=== PATIENT | male | born 1985 | race African-American/Black ===

== ENCOUNTER 2023-06-06 09:41 | Emergency (ER) | payer BC, SELFPAY ==
--- NOTE | ~2023-06-06 | XR_ITS ---
STUDY: Cervical and thoracic spine INDICATION: Neck and bilateral thoracic back pain COMPARISON: None FINDINGS: Cervical spine: Cervical lordotic straightening. Vertebral bodies and intervertebral discs are maintained in height. Odontoid is intact, posterior elements are aligned and no prevertebral soft tissue swelling seen. No apical abnormality identified. Thoracic spine: Minor lower anterior wedge deformities. Alignment is normal. No focal paravertebral soft tissue swelling seen. Cardiac silhouette appears prominent. Vessel crowding and elevated right hemidiaphragm. XR/XR thoracic spine 3V IMPRESSION: Cervical lordotic straightening. No acute bony pathology cervical and thoracic spine.
--- NOTE | ~2023-06-06 | XR_ITS ---
STUDY: Cervical and thoracic spine INDICATION: Neck and bilateral thoracic back pain COMPARISON: None FINDINGS: Cervical spine: Cervical lordotic straightening. Vertebral bodies and intervertebral discs are maintained in height. Odontoid is intact, posterior elements are aligned and no prevertebral soft tissue swelling seen. No apical abnormality identified. Thoracic spine: Minor lower anterior wedge deformities. Alignment is normal. No focal paravertebral soft tissue swelling seen. Cardiac silhouette appears prominent. Vessel crowding and elevated right hemidiaphragm. XR/XR cervical spine 3V IMPRESSION: Cervical lordotic straightening. No acute bony pathology cervical and thoracic spine.
[2023-06-06 09:47] VITALS: BP 143/78; PULSE 82; RESP 18; TEMP 36.7; O2SAT 97; BMI 46.5
--- NOTE | 2023-06-06 09:52 | ED.BACK ---
HPI - Back Pain/Injury General Chief Complaint: Back Pain/Injury Stated Complaint: Neck/back pain Time Seen by Provider: 06/06/23 09:50 Source: patient Mode of arrival: ambulatory Limitations: no limitations History of Present Illness HPI Narrative: 38 year old male with no significant past medical history presenting to the ED with a complaint of back pain after bending down to tie his shoe this morning. States he sneezed twice while he was bent down and heard his upper back crack . Since this time has had bilateral upper back pain with radiation into his neck bilaterally. Worse with movement. Able to ambulate with discomfort. Pain does not shoot down into his lower extremities. Denies tingling/numbness/weakness to his extremities. Denies JUSTIN, vision changes, dizziness, fever, chills, saddle paresthesias, or bowel/ bladder in continence or retention. No IVDU, history of back pain, or previous spinal surgeries. Related Data Previous Rx's Medication Instructions Recorded cyclobenzaprine 10 mg tablet 10 mg PO BEDTIME PRN muscle spasm 06/06/23 #7 tabs lidocaine 5 % topical patch 1 patch topical DAILY #15 ea 06/06/23 (Lidoderm) naproxen 500 mg tablet 500 mg PO BID PRN pain (scale 06/06/23 score 4-6) #14 tabs Allergies Allergy/AdvReac Type Severity Reaction Status Date / Time Penicillins [PCN] Allergy Severe ANAPHYLAXIS Verified 06/06/23 10:52 Sulfa (Sulfonamide Allergy Severe ANAPHYLAXIS Verified 06/06/23 10:52 Antibiotics) [SULFA (SULFONAMIDE ANTIBIOTICS)] Review of Systems Review of Systems: Constitutional: No fever, chills, fatigue, night sweats, weight changes Cardio: No chest pain, palpitations, CALVILLO, orthopnea, peripheral edema Pulm: No SOB, cough, sputum, wheezing, dyspnea, hemoptysis GI: No nausea, vomiting, hematemesis, abdominal pain, diarrhea, constipation, hematochezia, melena : No irregular bleeding, dysuria, frequency, urgency, hesitancy, hematuria, flank pain, urinary flow changes, urinary incontinence or retention MSK: + back pain, + neck pain, No joint pain, myalgias Skin: No lesions, rashes Neuro: No weakness, numbness, paresthesias, LOC, dizziness, headache All other systems reviewed and are negative. [facility] Past Medical History Attestation statement: The following information was validated with the patient. Source: old records reviewed and nursing notes reviewed Social History Social History Smoked in Last 30 Days: No Use of substances other than those prescribed or required for medical reasons: Yes Substance Use Type: Marijuana Advance Directives: No Advance Directives Information Provided: No Physical Exam Vital Signs: Vital Signs: Last Vital Signs Temp 98.7 F 06/06/23 10:21 Pulse 74 06/06/23 10:21 Resp 18 06/06/23 10:21 BP 159/83 H 06/06/23 10:21 Pulse Ox 97 06/06/23 10:21 O2 Del Method Room Air 06/06/23 10:21 BMI result Body Mass Index 46.5 Vital signs stable Const: Other: Sitting in chair in the exam room, uncomfortable appearing. General: cooperative, no acute distress, alert and awake Orientation/consciousness: patient oriented x3 Limitations: no limitations HEENT: Head: Yes normal to inspection, Yes No palpable skull fracture present, Yes normocephalic, Yes atraumatic, No Murillo's sign, No raccoon eyes and No periorbital ecchymosis Ears: hearing grossly normal bilaterally General nose exam: Normal external nose present Eyes: General: appearance normal, both eyes and all related structures Pupils: Equal, round and reactive pupils present EOM: EOMs intact bilaterally Neck: Other: + Neck with decreased range of motion due to pain. Tenderness to palpation over the trapezius muscles bilaterally. Neck: Yes normal visual inspection and Yes no meningeal signs Chest: Chest palpation & inspection: normal inspection of the chest and normal palpation of entire chest wall Resp: Effort & Inspection: normal respiratory effort and able to speak in complete sentences Auscultation: clear to auscultation bilaterally Cardio: Rate: regular rate Rhythm: regular rhythm Heart sounds: S1 normal heart sound present and S2 normal heart sound present Peripheral pulses: Peripheral pulses 2+ throughout : General: Yes no CVA tenderness Back/Spine/Pelvis: Other: No overlying skin changes, deformities, masses. + cervical and thoracic midline spinous tenderness and paraspinal muscles tender to palpation. No palpable deformity or step off. Decreased ROM of the entire spine due to pain. Back: no CVA tenderness Back/spine/pelvis image: 1. Skin: General skin exam: no rashes or lesions noted Neuro: Other: Strength 5/5 intact throughout.? No saddle anesthesia.? Sensation intact to light touch.? Neurovascular intact distally.? General: patient oriented x3, gait normal, moves all extremities and no meningeal signs Cranial nerves: Yes CN's II-XII intact bilaterally and Yes Equal, round and reactive pupils present Extrem: General: Yes normal to inspection and Yes full ROM Course Course Course Narrative: 1129-- Xray c spine showing cervical lordotic straightening, no acute fracture or pathology. Xray thoracic spine without fracture or pathology 1140-- On re-evaluation, patient reports symptom improvement with medications. He is able to sit forward and move around without discomfort. Given unremarkable work up and improvement with treatment, this is likely msk sprain/ strain. Will send patient home with flexeril, naproxen, and lido patches. His vital signs are still stable. Ambulating wtih steady gait. Discussed strict return precautions. All questions answered at this time. Patient agreeable with disposition. Stable for discharge. Medications Administered Discontinued Medications Generic Name Dose Route Start Last Admin Trade Name Freq PRN Reason Stop Dose Admin Cyclobenzaprine HCl 10 mg 06/06/23 10:28 06/06/23 10:55 Cyclobenzaprine Hcl 10 Mg Tablet PO 06/06/23 10:29 10 mg ONCE ONE Administration Ketorolac Tromethamine 30 mg 06/06/23 10:28 06/06/23 10:55 Ketorolac Tromethamine 30 Mg/Ml Vial IM 06/06/23 10:29 30 mg ONCE ONE Administration Lidocaine 1 patch 06/06/23 10:28 06/06/23 10:54 Lidocaine 4 % Patch Adh..Patch TRANSDERMA 06/06/23 10:29 1 patch ONCE ONE Administration Protocol Medical Decision Making Medical Decision Making [facility] Narrative: 38 year old male with no significant past medical history presenting to the ED a complaint of back pain after bending down to tie his shoe this morning. VSS. Patient in NAD, nontoxic appearing, appears uncomfortable secondary to pain. Neck with decreased range of motion due to pain. Tenderness to palpation over the trapezius muscles bilaterally. cervical and thoracic midline spinous tenderness and paraspinal muscles tender to palpation. No palpable deformity or step off. Decreased ROM of the entire spine due to pain. Clinical concern for cervical radiculopathy vs msk sprain/ strain vs fracture vs disc herniation vs sciatica. Unlikely cauda equina, cord compression, or epidural abscess. Plan at this time is pain control, x-ray a thoracic and cervical spine, and re-evaluation. Differential Diagnosis Differential Diagnoses: The differential diagnosis associated with the presentation includes As above. Admission/Observation Not indicated. Lab Data Not indicated. Independent Interpretation I performed an independent interpretation of an: Plain X-Ray Interpretation: X-ray cervical spine and thoracic spine without acute fracture, agree with radiologist's interpretation. Radiology Impression Discussion of test interpretation with radiology: I have reviewed the radiologist's reading. Radiologist Impression: FINDINGS: Cervical spine: Cervical lordotic straightening. Vertebral bodies and intervertebral discs are maintained in height. Odontoid is intact, posterior elements are aligned and no prevertebral soft tissue swelling seen. No apical abnormality identified. Thoracic spine: Minor lower anterior wedge deformities. Alignment is normal. No focal paravertebral soft tissue swelling seen. Cardiac silhouette appears prominent. Vessel crowding and elevated right hemidiaphragm. XR/XR thoracic spine 3V IMPRESSION: Cervical lordotic straightening. No acute bony pathology cervical and thoracic spine. Dictated By: Denia Meng MD Signed By: <Electronically signed by Denia Meng MD in OV> External Record Review External record reviewed: Inpatient record, Office record, Outpatient record, Prior outpatient labs, Prior outpatient radiology, Primary care record and Outside ED record Prescription Management I considered prescription management with: Pain Medication Critical Care Time Critical Care Time Critical Care Time: No Discharge Plan Discharge Clinical Impression: Strain of lumbar region Patient Disposition: Home, Self-Care Instructions: Back Pain (ED) Additional Instructions: The x-ray of your cervical and thoracic spine did not show acute fracture or dislocation. Your pain is likely musculoskeletal. Avoid bending, lifting, or twisting. Use ice several times per day for 20 minutes at a time for the next 48 hours and then change to heat. Flexeril is a muscle relaxer. Take this at night as it makes you drowsy. Do not drive, drink alcohol, or operate machinery while taking it. Naproxen is an anti-inflammatory / pain medication. Take with food. Do not take this with Ibuprofen. Lidoderm patches are numbing patches. Apply to painful areas. In addition you may take Tylenol at home. Follow up with your primary care provider as needed If your pain worsens, if you develop new numbness, tingling, weakness, loss of bowel or bladder function call 911 or return to the ER immediately for evaluation. Prescriptions: New lidocaine [Lidoderm] 5 % adhesive patch,medicated 1 patch topical DAILY Qty: 15 0RF Rx Instructions: leave on most painful area for up to 12 hrs naproxen 500 mg tablet 500 mg PO BID PRN (Reason: pain (scale score 4-6)) Qty: 14 0RF cyclobenzaprine 10 mg tablet 10 mg PO BEDTIME PRN (Reason: muscle spasm) Qty: 7 0RF Referrals: Physician,None [Primary Care Provider] - Stand Alone Forms: Work/School Release Interventions: ED Discharge Assessment Last Done: 06/06/23 11:45 Discharge Date/Time: 06/06/23 11:52
[2023-06-06 10:21] VITALS: BP 159/83; PULSE 74; RESP 18; TEMP 37.1; O2SAT 97
[2023-06-06] MEDS: Lidocaine 4 % Patch ADH..PATCH 1 PATCH TRANSDERMA (10:54)
[2023-06-06] MEDS: Ketorolac Tromethamine 30 MG/ML VIAL IM (10:55)
[2023-06-06] MEDS: Cyclobenzaprine HCl 10 MG TABLET PO (10:55)
== END 2023-06-06 11:52 | disposition home or self-care (01) ==
PROVIDERS: Emergency Provider Emergency Medicine
DX: S39.012A Strain of muscle, fascia and tendon of lower back, initial encounter (principal); X58.XXXA Exposure to other specified factors, initial encounter; M54.6 Pain in thoracic spine; Y93.9 Activity, unspecified; Y92.9 Unspecified place or not applicable; Y99.9 Unspecified external cause status
CPT/HCPCS: 72040; 72072; 96372; 99284; J1885

== ENCOUNTER 2024-02-26 10:52 | Emergency (ER) | payer BC, SELFPAY ==
--- NOTE | ~2024-02-26 | XR_ITS ---
EXAMINATION: XR KNEE, RIGHT CLINICAL INFORMATION: Twisted knee on slip and slide COMPARISON: None available. TECHNIQUE: Four views of the right knee. FINDINGS: No fracture or joint effusion. Tiny osteophyte arising from the lateral tibial tubercle. Alignment is anatomic. Joint spaces are maintained. No abnormal soft tissue calcification. XR/XR knee RT 2V IMPRESSION: No acute fracture or subluxation.
[2024-02-26 11:27] VITALS: BP 147/95; PULSE 87; RESP 20; TEMP 36.6; O2SAT 97; BMI 46.2
--- NOTE | 2024-02-26 11:27 | ED.LOWEXIN ---
HPI - Extremity Injury (Lower) General Chief Complaint: Extremity Injury, Lower Stated Complaint: R leg pain Time Seen by Provider: 02/26/24 11:39 Source: patient and family Mode of arrival: ambulatory Limitations: no limitations History of Present Illness HPI Narrative: 39-year-old male with no significant past medical history presents to the emergency department, this mother, for complaints of right knee pain. He reports he was on a slip and slide on Monday when he slipped on mud and twisted his right knee. He reports he has been having increased pain in the posterior leg from behind the knee to the buttock. He also reports pain at the right lateral knee with mild swelling. He denies any erythema or ecchymosis. He reports difficulty with range of motion and ambulation secondary to pain. He denies any paresthesias Pertinent positives and negatives discussed in HPI Related Data Previous Rx's ?Medication ?Instructions ?Recorded cyclobenzaprine 10 mg tablet 10 mg PO BEDTIME PRN muscle spasm 06/06/23 #7 tabs lidocaine 5 % topical patch 1 patch topical DAILY #15 ea 06/06/23 (Lidoderm) naproxen 500 mg tablet 500 mg PO BID PRN pain (scale 06/06/23 score 4-6) #14 tabs cyclobenzaprine 5 mg tablet 5 mg PO TID PRN muscle spasm #10 02/26/24 tabs Allergies Allergy/AdvReac Type Severity Reaction Status Date / Time Penicillins [PCN] Allergy Severe ANAPHYLAXIS Verified 02/26/24 11:32 Sulfa (Sulfonamide Allergy Severe ANAPHYLAXIS Verified 02/26/24 11:32 Antibiotics) [SULFA (SULFONAMIDE ANTIBIOTICS)] Review of Systems Review of Systems: Yes all other systems are reviewed and are negative [facility] Social History Social History Substance Use Type: Marijuana Advance Directives: No Advance Directives Information Provided: Yes Do you have a plan to hurt others: No Plan Physical Exam Vital Signs: Vital Signs: Last Vital Signs Temp 97.8 F 02/26/24 13:45 Pulse 87 02/26/24 13:45 Resp 20 02/26/24 13:45 BP 147/95 H 02/26/24 13:45 Pulse Ox 97 02/26/24 11:27 O2 Del Method Room Air 02/26/24 13:45 BMI result Body Mass Index 46.2 Nursing notes and vital signs reviewed. GENERAL APPEARANCE: A&0 x 4, generally well appearing, no acute distress HENMT: Normal to inspection, atraumatic, face symmetrical. Normal external ears, nose, and oropharynx clear. EYE: PERRLA, EOM intact, structures appear normal NECK: Supple without stiffness or restricted ROM. HEART: Normal rate and regular rhythm, normal S1/S2, no M/R/G LUNGS: LS CTA, moving air well. Able to speak in complete sentences. No crackles, wheezes, or rhonchi auscultated BACK: No CVAT, no obvious deformity EXTREMITIES: Tenderness to palpation right lateral knee and posterior upper leg. Normal capillary refill. NEUROLOGICAL: Alert and oriented, moving all 4 extremities with equal strength. CN not formally tested but appearing grossly intact. Observed to ambulate with normal gait. Cognition normal SKIN: Warm and dry without any lesions, rash, or visible sores Course Course Course Narrative: This is a Rapid Medical Exam performed in triage by Maria Ines Villarreal PA-C. Full HPI, ROS and PE to be performed by primary ED provider. 39 year-old M w/no sig PMHx presenting to the ED c/o posterior RLE pain s/p running onto slip & side on Monday but stepping into mud puddle prior. reports pain from back of knee to buttock PE: ambulating w/limping gait. +ttp to R posterior thigh. difficult to examine in triage Plan: pain control, +/-imaging with full eval in [facility] Medications Administered Discontinued Medications Generic Name Dose Route Start Last Admin Trade Name Freq PRN Reason Stop Dose Admin Acetaminophen 975 mg 02/26/24 11:45 02/26/24 11:57 Acetaminophen 325 Mg Tablet PO 02/26/24 11:46 975 mg ONCE ONE Administration Ketorolac Tromethamine 15 mg 02/26/24 11:45 02/26/24 11:57 Ketorolac Tromethamine 15 Mg/Ml Vial IM 02/26/24 11:46 15 mg ONCE ONE Administration Medical Decision Making Medical Decision Making MDM Narrative: Old records reviewed for previous imaging, lab studies, ECGs, and notes. Patient was assessed the emergency department with no acute distress or toxicity noted. X-ray right knee completed showing no evidence of acute fractures, or dislocations, per my interpretation. Evidence of a an osteophyte arising from the lateral tibial tubercle which could be consistent with patellar tendon injury. Patient is right posterior upper leg pain is consistent with an acute hamstring injury and patient educated to rest, ice, compress, and elevate for comfort in addition to ice and heat. Reuben wrap applied here in the emergency department and prescriptions for cyclobenzaprine since patient's preferred pharmacy. Patient is safe for discharge at this time with plan for [id number] Tylenol and/or NSAID such as ibuprofen or naproxen for fever/discomfort with dosing as per packaging. HPI, PE, diagnostics, and plan discussed with patient and family with no unanswered questions at this time. Strict return precautions given to return to the emergency department with new, worsening, or concerning emergent symptoms. Recommended to follow-up with there primary care provider in 24-48 hours for further treatment and management. Differential Diagnosis Differential Diagnoses: The differential diagnosis associated with the presentation includes But not limited to fracture, dislocation, sprain, strain, spasm, contusion, tendon/ligament/nerve injury, effusion, septic joint Independent Interpretation I performed an independent interpretation of an: Plain X-Ray Interpretation: As negative for acute fracture Prescription Management I considered prescription management with: Pain Medication Narcotic pain medication was considered, however; based on exam, side effects, and high-risk of addiction was deemed necessary at this time. Discharge Plan Discharge Clinical Impression: Strain of right patellar tendon, Hamstring injury Patient Disposition: Home, Self-Care Instructions: Crutch Instructions (ED), Hamstring Injury (ED), R.I.C.E. Treatment (ED) Prescriptions: New cyclobenzaprine 5 mg tablet 5 mg PO TID PRN (Reason: muscle spasm) Qty: 10 0RF No Action lidocaine [Lidoderm] 5 % adhesive patch,medicated 1 patch topical DAILY Qty: 15 0RF Rx Instructions: leave on most painful area for up to 12 hrs naproxen 500 mg tablet 500 mg PO BID PRN (Reason: pain (scale score 4-6)) Qty: 14 0RF cyclobenzaprine 10 mg tablet 10 mg PO BEDTIME PRN (Reason: muscle spasm) Qty: 7 0RF Referrals: [facility] [place] [facility] [place] Group] [facility] [place] [facility] [place]Provider Group] [facility] [place] [facility] [Provider Group] [facility] [Provider Group] Stand Alone Forms: Work/School Release Interventions: ED Discharge Assessment Last Done: 02/26/24 13:45 Discharge Date/Time: 02/26/24 13:46 Print Language: Greek
[2024-02-26] MEDS: Ketorolac Tromethamine 15 MG/ML VIAL IM (11:57)
[2024-02-26] MEDS: Acetaminophen 325 MG TABLET 975 MG PO (11:57)
--- NOTE | 2024-02-26 12:00 | PC.NURSE ---
pt medicated for 02/11 rle pin
[2024-02-26 13:45] VITALS: BP 147/95; PULSE 87; RESP 20; TEMP 36.6
== END 2024-02-26 13:46 | disposition home or self-care (01) ==
PROVIDERS: Emergency Provider Emergency Medicine
DX: S86.911A Strain of unspecified muscle(s) and tendon(s) at lower leg level, right leg, initial encounter (principal); M25.561 Pain in right knee; X50.1XXA Overexertion from prolonged static or awkward postures, initial encounter; Y93.9 Activity, unspecified; Y92.9 Unspecified place or not applicable; Y99.8 Other external cause status
CPT/HCPCS: 73560; 96372; 99283; 99284; J1885

== ENCOUNTER 2024-03-12 09:18 | Outpatient (AMB) | payer BC, SELFPAY ==
--- NOTE | 2024-03-12 09:36 | A.OFFVIS_ITS ---
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 Patient reports he was on a slip and slide when he slipped on mud and twisted his right knee. He expresses that his pain . Currently he is having a popping sensation and his knee feels unstable. He has notice a bump be hind his knee about a week and a half ago from the injury. 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 Luna is a 39-year-old male who presents to the office today for evaluation of right knee and hamstring pain. He reports that on 02/24/2024 he was going down a slope inside when he twisted and fell. He reports that the majority of his pain is located to the posterior aspect of his knee. Since the date of injury he has noted an improvement in his symptoms however they have not completely resolved. He has a reported sharp pain along the posterolateral aspect of the knee in which he points to. He presented to the emergency department on 02/26/24 where x-rays were obtained and negative for any acute fracture dislocation. He was given a prescription for a muscle relaxer and ibuprofen which did help some. He was then instructed to follow up with orthopedics outpatient for further evaluation and treatment. 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 Range of motion 0-110 degrees. No tenderness to palpation of the medial or lateral joint line. Tenderness to palpation over the posterior aspect of the knee over the hamstrings. Positive Jorge A's posterolateral joint line. Negative anterio r drawer. NVI. Assessment & Plan Assessment & Plan (1) Right hamstring muscle strain: Code(s): S76.311A - Strain of muscle, fascia and tendon of the posterior muscle group at thigh level, right thigh, initial encounter Category: Medical (2) Internal derangement of right knee: Code(s): M23.91 - Unspecified internal derangement of right knee Category: Medical Plan Mr. Luna is a 39-year-old male who presents to the office today for evaluation of right knee and hamstring pain. He reports that on 02/24/2024 he was going down a slope inside when he twisted and fell. He reports that the majority of his pain is located to the posterior aspect of his knee. Since the date of injury he has noted an improvement in his symptoms however they have not completely resolved. He has a reported sharp pain along the posterolateral aspect of the knee in which he points to. He presented to the emergency department on 02/26/24 where x-rays were obtained and negative for any acute fracture dislocation. He was given a prescription for a muscle relaxer and ibuprofen which did help some. He was then instructed to follow up with [facility] outpatient for further evaluation and treatment. Patient will be referred for MRI imaging to further evaluate the integrity of the knee and surrounding structures. His follow-up will be after MRI imaging via telephone encounter as the patient has a high co-pay for his visits. His follow-up will be after MRI is obtained sooner if needed. X-rays obtained from 02/26/2024 obtained in the emergency department are reviewed by Hannah martin PA-C, and are negative for any acute fracture or dislocation. Medications: Discontinued naproxen Discontinued Reason: Patient no longer taking 500 mg PO BID PRN 14 tabs 0RF pain (scale score 4-6) Coding Level of Care Code New Pt Level 4 (54108) Diagnoses Right hamstring muscle strain S76.311A Internal derangement of right knee M23.91
[2024-03-12 09:41] VITALS: BMI 46.2
== END 2024-03-12 10:33 | disposition home or self-care (01) ==
PROVIDERS: Visit Provider Physician Assistant
DX: S76.311A Strain of muscle, fascia and tendon of the posterior muscle group at thigh level, right thigh, initial encounter (principal); M23.91 Unspecified internal derangement of right knee
CPT/HCPCS: 99203

== ENCOUNTER → 2024-03-12 09:18 | Outpatient (BNVA) | payer BC, SELFPAY | PROVIDERS: Visit Provider Physician Assistant ==

== ENCOUNTER 2024-05-01 12:59 | Outpatient (REF) | payer BC, SELFPAY ==
--- NOTE | ~2024-05-01 | MR_ITS ---
EXAMINATION: MR KNEE WITHOUT CONTRAST, RIGHT CLINICAL INFORMATION: Right knee crepitus and decreased range of motion. Instability. Internal derangement. COMPARISON: Right knee radiographs dated 02/26/2024. TECHNIQUE: MRI of the knee without contrast was performed using routine sequences on a high-field scanner. FINDINGS: MENISCI: Medial Meniscus: Intact. Lateral Meniscus: Intact. LIGAMENTS: Cruciate: Intact. Collateral: Edema adjacent to the medial collateral ligament consistent with an acute grade 1 sprain/partial tear. Edema along the periphery of the fibular collateral ligament, consistent with a grade 1 sprain/partial tear. EXTENSOR MECHANISM: Mild distal quadriceps and proximal patellar tendinosis. No transverse tear or tendon retraction. ARTICULAR CARTILAGE/BONE: Patellofemoral Compartment: Intact articular cartilage. Medial Compartment: Intact articular cartilage. Lateral Compartment: Intact articular cartilage. JOINT FLUID AND BURSAE: Small joint effusion. MUSCLE/TENDONS: Heterogeneously increased T2 signal within the distal biceps femoris tendon with mild adjacent soft tissue edema, consistent with tendinosis and minimal longitudinal partial tearing. No full-thickness transverse tendon tear or tendon retraction. MR/MR knee RT wo con IMPRESSION: 1. Acute grade 1 sprain/partial tear of the medial collateral ligament. 2. Acute grade 1 sprain/partial tear of the fibular collateral ligament. 3. No meniscal tear. 4. Mild distal quadriceps and proximal patellar tendinosis. 5. Distal biceps femoris tendinosis with minimal longitudinal partial tear. No full-thickness transverse tendon tear or tendon retraction. 6. Small joint effusion. Electronically signed by: Zaheer Hewitt MD 05/02/2024 10:38 AM EDT
== END 2024-05-01 13:00 | disposition home or self-care (01) ==
LOC: HO.MRI 12:59
PROVIDERS: Visit Provider Physician Assistant
DX: M23.91 Unspecified internal derangement of right knee (principal); S76.311A Strain of muscle, fascia and tendon of the posterior muscle group at thigh level, right thigh, initial encounter
CPT/HCPCS: 73721

== ENCOUNTER 2024-07-08 10:18 | Inpatient (IN) | payer BC, SELFPAY ==
--- NOTE | ~2024-07-08 | XR_ITS ---
EXAMINATION: XR FINGER, RIGHT CLINICAL INFORMATION: Right fifth finger swelling, pain, no injury. COMPARISON: None available. TECHNIQUE: 3 views of the right fifth digit. Bone mineralization is normal. Alignment maintained. Moderate degenerative changes in the first carpometacarpal joint and triscaphe joint with joint space narrowing and hypertrophic change. No displaced fracture of the fifth digit appreciated. Soft tissue swelling at the fifth digit. Radiopaque marker placed by technologist to indicate the area of concern as indicated by the patient at the PIP joint of the fifth digit. XR/XR finger RT min 2V IMPRESSION: No displaced fracture of the fifth digit. Diffuse soft tissue swelling. This study was presented today July 08, 2024 for interpretation. Stat results provided at this time as requested by referring provider. Electronically signed by: Una Tovar MD 07/08/2024 11:24 AM [facility]
[2024-07-08 10:20] VITALS: BP 128/89; PULSE 80; RESP 16; TEMP 36.4; O2SAT 98; BMI 46.2
--- NOTE | 2024-07-08 13:31 | ED.EXTPRO ---
HPI - Extremity Problem General Chief complaint: Extremity Problem Stated complaint: r fith finger pain Time Seen by Provider: 07/08/24 12:01 Source: patient, RN notes reviewed and old records reviewed Mode of arrival: ambulatory History of Present Illness ED Provider: Maria Ines Villarreal PA-C HPI Narrative: 39-year-old male with no significant past medical history presenting to the ED complaining of right 5th digit pain, erythema, and swelling x 8 days. States initially began as pruritus which progressed. Reports pain with ROM. Denies known injury, trauma, fall, drainage from area, chills, numbness. Related Data Home Medications ?Medication ?Instructions ?Recorded ?Confirmed naproxen sodium 220 mg tablet 220 - 440 mg PO DAILY PRN Pain 07/08/24 07/08/24 (Aleve) Allergies Allergy/AdvReac Type Severity Reaction Status Date / Time Penicillins [PCN] Allergy Severe ANAPHYLAXIS Verified 07/08/24 10:22 Sulfa (Sulfonamide Allergy Severe ANAPHYLAXIS Verified 07/08/24 10:22 Antibiotics) [SULFA (SULFONAMIDE ANTIBIOTICS)] Review of Systems Review of Systems: Yes all other systems are reviewed and are negative Constitutional: Constitutional: Reports as per [facility] Past Medical History Attestation statement: The following information was validated with the patient. 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 Physical Exam Vital Signs: Vital Signs: Last Vital Signs Temp 98.4 F 07/08/24 16:37 Pulse 64 07/08/24 16:37 Resp 16 07/08/24 16:37 BP 162/76 H 07/08/24 16:37 Pulse Ox 96 07/08/24 16:37 O2 Del Method Room Air 07/08/24 16:37 BMI result Body Mass Index 46.2 Const: General: cooperative, healthy appearing and no acute distress Orientation/consciousness: patient oriented x3 Limitations: no limitations HEENT: Head: Yes normal to inspection and Yes atraumatic Ears: hearing grossly normal bilaterally General nose exam: Normal external nose present Face and sinus: Yes normal facial exam Eyes: General: appearance normal, both eyes and all related structures EOM: EOMs intact bilaterally Neck: Neck: Yes normal visual inspection and Yes no meningeal signs Resp: Effort & Inspection: normal respiratory effort and no respiratory distress Cardio: Rate: regular rate Skin: Rashes: no rashes Neuro: General: patient oriented x3, tone normal and no meningeal signs Cranial nerves: Yes CN's II-XII intact bilaterally Gait exam (Neuro): Normal gait present Extrem: Other: Please refer to images above. Right 5th digit with appreciable erythema, swelling, & fluctuance to volar and palmar aspects with streaking. Tenderness elicited over flexor tendon. Pain with passive extension. Course Course Course Narrative: XR finger RT min 2V IMPRESSION: No displaced fracture of the fifth digit. Diffuse soft tissue swelling. This study was presented today July 08, 2024 for interpretation. Stat results provided at this time as requested by referring provider. > case discussed with orthopedics Dr. Velásquez, orthopedic PA Billy evaluated patient in the ED and discussed case with Dr. Eaton ([facility] [place]) recommended admission for IV antibiotics and they will monitor. Low suspicion for acute tenosynovitis at this time however may progress. - labs reassuring. Case discussed with hospitalist Medications Administered Generic Name Dose Route Start Last Admin Trade Name Freq PRN Reason Stop Dose Admin Sodium Chloride 3 ml 07/08/24 16:00 07/08/24 16:24 0.9 % Sodium Chloride Flush 3 Ml Syringe IVFLUSH Not Given QSHIFT ASNTOSH Discontinued Medications Generic Name Dose Route Start Last Admin Trade Name Freq PRN Reason Stop Dose Admin Vancomycin HCl 2,000 mg in 500 mls @ 250 mls/hr 07/08/24 13:20 07/08/24 14:54 Vancomycin/Ns IV 07/08/24 15:19 250 mls/hr ONCE ONE Administration Clindamycin Phosphate 600 mg in 50 mls @ 100 mls/hr 07/08/24 13:29 07/08/24 14:49 Cleocin IV 07/08/24 13:58 Infused ONCE ONE Infusion Ketorolac Tromethamine 15 mg 07/08/24 14:29 07/08/24 14:50 Ketorolac Tromethamine 15 Mg/Ml Vial IVPUSH 07/08/24 14:30 15 mg ONCE ONE Administration Medical Decision Making Medical Decision Making [facility] Narrative: 39-year-old male with no significant past medical history presenting to the ED complaining of right 5th digit pain, erythema, and swelling x 8 days. On exam vital signs stable, NAD, nontoxic appearing, physical exam as noted above. Concern for flexor tenosynovitis vs paronychia vs felon. Lower suspicion for fracture or osteomyelitis. Lower suspicion for septic joint at this time Plan: Labs, blood cultures, x-ray, consult Orthopedics, anticipate admission Please refer to course for remaining clinical decision making, interpretation of labs/imaging results, and discussions with consultants and/or family members. Differential Diagnosis Differential Diagnoses: The differential diagnosis associated with the presentation includes As above Admission/Observation Consideration of admission/observation: Escalation of care including admission/observation considered Consult Healthcare Provider Management of the patient was discussed with: Manager Transplant ( Orthopedics) Lab Data [facility] Lab Attestation statement: I reviewed the patient's lab results. 07/08/24 13:39 07/08/24 13:39 Labs: Lab Results 07/08/24 Range/Units 13:39 WBC 8.9 (4.8-10.8) X10*3/uL RBC 4.70 (4.60-5.80) X10*6/uL Hgb 15.1 (14.0-18.0) g/dl Hct 43.7 (42.0-52.0) % MCV 93.0 (80.0-98.0) fL MCH 32.1 (27.0-33.0) pg MCHC 34.6 (31.0-36.0) g/dl RDW 13.1 (11.0-16.0) % Plt Count 163 (160-400) X10*3/uL MPV 10.4 (9.4-12.4) fL Immature Gran % (Auto) 0.5 H (0.0-0.4) % Neut % (Auto) 49.0 (45-73) % Lymph % (Auto) 41.0 H (20-40) % [place] % (Auto) 8.0 (2-11) % Eos % (Auto) 1.0 (0-4) % Baso % (Auto) 0.5 (0-2) % Lymph # (Auto) 3.6 (1.2-4.9) X10*3/uL [place] # (Auto) 0.7 (0.1-1.2) X10*3/uL Eos # (Auto) 0.1 (0.0-0.4) X10*3/uL Baso # (Auto) 0.0 (0.0-0.2) X10*3/uL Abs Immat Gran (auto) 0.04 H (0.00-0.03) X10*3/uL Absolute Neuts (auto) 4.3 (2.0-8.3) x10*3/uL Absolute Nucleated RBC 0.000 (0.0-0.012) X10*3/uL Nucleated RBC % (auto) 0.0 (0.0-0.2) /100WBC Smear Tech's Comments VERIFIED ESR 16 H (0-15) MM/HR Sodium 139 (135-145) mmol/L Potassium 3.8 (3.3-5.1) mmol/L Chloride 107 (96-108) mmol/L Carbon Dioxide 22 (22-29) mmol/L Anion Gap 14 (12-20) BUN 10 (9-16) mg/dL Creatinine 0.83 (0.5-1.4) mg/dL Estim Creat Clear Calc 199.1 Estimated GFR > 60 Random Glucose 89 (60-115) mg/dL Calcium 10.0 (8.4-10.2) mg/dL Total Bilirubin 1.0 (0.0-1.0) mg/dL Direct Bilirubin 0.3 (0.0-0.5) mg/dL AST 39 H (5-37) U/L ALT 39 (0-40) U/L Alkaline Phosphatase 62 (39-117) U/L C-Reactive Protein 0.44 (< or = 0.50) mg/dL Total Protein 9.8 H (6.5-8.0) g/dL Albumin 4.5 (3.5-5.0) g/dL Independent Interpretation I performed an independent interpretation of an: Plain X-Ray Radiology Impression Discussion of test interpretation with radiology: I have reviewed the radiologist's reading. External Record Review External record reviewed: Inpatient record, Office record, Outpatient record, Prior outpatient labs, Prior outpatient radiology, Primary care record and Outside ED record Tests considered The following testing was considered but not selected: As above Prescription Management I considered prescription management with: Pain Medication Chronic Conditions Patient?s care impacted by: Other Social Determinants Patient?s care significantly limited by Social Determinants of Health including: Other Social Determinant of Health Critical Care Time Critical Care Time Critical Care Time: Yes Total Critical Care Time: 35 Attestation: I have personally provided critical care time exclusive of time spent on separately billable procedures. Time includes review of lab data, radiology results, discussion with consultants, and monitoring for potential decompensation. Intervention performed as documented. Discharge Plan Discharge Clinical Impression: Flexor tenosynovitis of finger Patient Disposition: Admitted As Inpatient
--- NOTE | 2024-07-08 13:42 | PM.CNOR ---
History of Present Illness HPI Consult date: 07/08/24 Chief complaint: r loretta finger pain Narrative: Patient is a 39-year-old male who presents to the emergency department for severe pain with associated swelling of distal aspect of the right small finger. Patient reports that approximately 8 days ago, he noticed pain and itching that began on the radial aspect of the distal phalanx of the right small finger. The patient also states that approximately 3-4 days ago, he noticed acute erythema and swelling beginning in the same area, and began soaking the area, as he has had a paronychia previously and this was how it was treated. However, the patient reports that this swelling and pain only worsened, to the point where he now feels that he is experiencing pain all the way to the medial epicondyle of the right elbow. The patient states that his pain and made it difficult for him to sleep, as any time anything touches near this area of swelling he begins to experience severe pain. The patient reports that he is able to extend the right small finger almost fully, and is able to get more than half way to a closed fist with the same digit. Patient denies any numbness or tingling in the right hand. No other acute complaints or concerns at this time. [facility] Social History Social History Unable to assess alcohol history related to: Unknown Alcohol intake: never Patient Tobacco Use Status: Former Tobacco user Cigarettes Per Day: 3 Use of substances other than those prescribed or required for medical reasons: Unknown Substance Use Type: Marijuana Advance Directives: No Advance Directives Information Provided: Yes Do you have a plan to hurt others: No Plan Current occupational status: employed Current occupation: [employer] Meds Allergies Allergy/AdvReac Type Severity Reaction Status Date / Time Penicillins [PCN] Allergy Severe ANAPHYLAXIS Verified 07/08/24 10:22 Sulfa (Sulfonamide Allergy Severe ANAPHYLAXIS Verified 07/08/24 10:22 Antibiotics) [SULFA (SULFONAMIDE ANTIBIOTICS)] Active Medications: Current Medications Vancomycin HCl (Vancomycin/Ns) 2,000 mg in 500 mls @ 250 mls/hr IV ONCE ONE Stop: 07/08/24 15:19 Clindamycin Phosphate (Cleocin) 600 mg in 50 mls @ 100 mls/hr IV ONCE ONE Stop: 07/08/24 13:58 Physical Exam Vital Signs: Vital Signs: Last Vital Signs Temp 97.6 F 07/08/24 10:20 Pulse 80 07/08/24 10:20 Resp 16 07/08/24 10:20 BP 128/89 07/08/24 10:20 Pulse Ox 98 07/08/24 10:20 O2 Del Method Room Air 07/08/24 10:20 BMI result Body Mass Index 46.2 Extrem: Other: Patient is alert, oriented, and in no acute distress. Neuro: Normal sensation of the tips of all digits of the right hand at this time Vascular: Cap refill brisk Pain: Severe pain and tenderness to palpation of the distal and radial aspect of the right small finger, moving into the radial aspect of the middle phalanx No tenderness to palpation of the proximal or middle flexor tendon of the right small finger Patient is able to almost fully actively extend the right small finger, is able to get approximately 60-70% of the way to a closed fist while flexing the right small finger, restricted due to pain Skin: There is a focal area of edema and erythema with a small area of purulence noted on the radial aspect of the distal phalanx of the right small finger Of note, there is some erythema streaking down the radial aspect of the right small finger down to the base and into the distal hand Psych: Appears grossly normal Affect normal Attitude cooperative Results Labs Labs: All other labs normal. Diagnostic results Wrist/Hand x-ray: report reviewed and image reviewed (X-rays obtained in the ED today and independently reviewed by me, Billy Rogers PA-C, demonstrate no fracture or acute bony abnormality of the right hand. ) Assessment and Plan (1) Paronychia of right little finger: Status: Acute Plan 1. Paronychia of right small finger with associated cellulitis Ongoing for approximately 8 days At this time, patient should be admitted to the medicine service for IV antibiotic therapy Patient should be encouraged to soak a affected finger in warm water with either salt or half-strength peroxide to encourage softening of the skin and spontaneous drainage of the focal area of purulence on the right small finger Hand surgery will continue to follow daily to reassess evaluate for any potential surgical intervention indicated Patient understands this is amenable to this plan Should be made NPO at midnight pending evaluation tomorrow Continue with all other recommendations per Medicine Procedures Date of Service Date of Service: 07/08/24
[2024-07-08 14:05] LABS: Basophils Percent Auto 0.5 % (0-2); Eosinophils Absolute Auto 0.1 X10*3/uL (0.0-0.4); Hematocrit 43.7 % (42.0-52.0); Hemoglobin 15.1 g/dl (14.0-18.0); Imm Gran Abs Auto 0.04 X10*3/uL (0.00-0.03); Imm Gran Pct Auto 0.5 % (0.0-0.4); Lymphocytes Absolute Auto 3.6 X10*3/uL (1.2-4.9); MANUAL DIFF FLAG SCAN; Mean Corpuscular HGB Conc 34.6 g/dl (31.0-36.0); Mean Corpuscular Hemoglobin 32.1 pg (27.0-33.0); Mean Platelet Volume 10.4 fL (9.4-12.4); Monocytes Absolute Auto 0.7 X10*3/uL (0.1-1.2); Neutrophils Absolute Auto 4.3 x10*3/uL (2.0-8.3); PLT CLUMP 1; Red Cell Distribution Width 13.1 % (11.0-16.0); SCAN SMEAR FLAG 1
[2024-07-08 14:06] LABS: White Blood Count 8.9 X10*3/uL (4.8-10.8)
[2024-07-08 14:12] LABS: Alanine Aminotransferase 39 U/L (0-40); Albumin Level 4.5 g/dL (3.5-5.0); Alkaline Phosphatase 62 U/L (39-117); Anion Gap 14 (12-20); Aspartate Amino Transferase 39 U/L (5-37); Bilirubin Direct 0.3 mg/dL (0.0-0.5); Blood Urea Nitrogen 10 mg/dL (9-16); C Reactive Protein 0.44 mg/dL (< or = 0.50); Carbon Dioxide 22 mmol/L (22-29); Chloride 107 mmol/L (96-108); Creatinine Clr Calc Pharmacy 199.1; Estimated Glomerular Filt Rate > 60; Glucose Random 89 mg/dL (60-115); Potassium 3.8 mmol/L (3.3-5.1); Sodium 139 mmol/L (135-145); Total Protein 9.8 g/dL (6.5-8.0)
[2024-07-08] MEDS: Clindamycin Phosphate/D5W 600 MG/50 ML PIGGYBACK 100 MG IV ×2 (14:19→21:05)
[2024-07-08 14:22] LABS: Platelet Count 163 X10*3/uL (160-400); SLIDE REVIEW VERIFIED
[2024-07-08 14:26] VITALS: BP 126/51; PULSE 72; RESP 16; TEMP 37.2; O2SAT 95
--- NOTE | 2024-07-08 14:35 | PHA.MEDREC ---
Pharmacy Consult ? Medication Reconciliation Pharmacy has completed the medication reconciliation. Spoke with patient and he confirmed he is not taking anything except for the occasional Aleve and he states he takes 1-2 tabs daily as needed for pain and he confirmed he took that roughly 2-3 days ago.
[2024-07-08 14:38] LABS: Erythrocyte Sedimentation Rate 16 MM/HR (0-15)
[2024-07-08] MEDS: Ketorolac Tromethamine 15 MG/ML VIAL IVPUSH (14:50)
[2024-07-08] MEDS: vancomycin/NS 2,000 MG/500 ML PLAST..BAG 250 MG IV (14:54)
--- NOTE | 2024-07-08 15:42 | PM.IMHP ---
History of Present Illness Date of Service: 07/08/24 Attending physician on admission: [facility] Chief Complaint: R 5th digit pain Patient is a 39-year-old male with no significant past medical history who presented to the ED today with right 5th digit pain swelling past few days. He reports about 8 days ago he had itching on the finger, lateral aspect for about 3 days followed by pain and swelling. He rated the pain a 10/10 when touched, constant 7/10 pain however since arriving here and receiving antibiotics and ketorolac the pain has decreased to a 5/10. He denies any trauma to the area. No previous history of similar. He has not seen any providers for this prior to reporting to the ED. Review of Systems Constitutional: Constitutional: Denies chills, Denies fatigue, Denies fever(s) and Denies weakness Eyes: Eyes: Denies blurry vision and Denies change in vision ENT: Denies nasal congestion, Denies nasal discharge and Denies nasal obstruction Cardiovascular: Cardiovascular: Denies chest pain, Denies rapid heart rate, Denies leg edema and Denies dyspnea Respiratory: Respiratory: Denies chest congestion, Denies cough and Denies dyspnea Gastrointestinal: Gastrointestinal: Denies constipation, Denies diarrhea, Denies nausea and Denies vomiting Genitourinary: Genitourinary: Denies dysuria Musculoskeletal: Musculoskeletal: Reports as per HPI Integumentary/Breasts: Skin/Breast: Reports as per HPI Neurologic: Denies confusion and Denies weakness Psychiatric: Psychiatric: Denies confusion Endocrine: Endocrine: Denies fatigue Hematologic/Lymphatic: Hematologic/Lymphatic: Denies easy bleeding PMFSH Functional capacity: independent ambulation Social History Unable to assess alcohol history related to: Unknown Alcohol intake: never Patient Tobacco Use Status: Former Tobacco user Cigarettes Per Day: 3 Use of substances other than those prescribed or required for medical reasons: Unknown Substance Use Type: Marijuana Advance Directives: No Advance Directives Information Provided: Yes Do you have a plan to hurt others: No Plan Current occupational status: employed 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 Meds Allergies Allergy/AdvReac Type Severity Reaction Status Date / Time Penicillins [PCN] Allergy Severe ANAPHYLAXIS Verified 07/08/24 10:22 Sulfa (Sulfonamide Allergy Severe ANAPHYLAXIS Verified 07/08/24 10:22 Antibiotics) [SULFA (SULFONAMIDE ANTIBIOTICS)] Home Medications ?Medication ?Instructions ?Recorded ?Confirmed ?Last Taken ?Type naproxen sodium 220 mg tablet 220 - 440 mg PO DAILY PRN Pain 07/08/24 07/08/24 2 Days Ago History (Aleve) ~07/06/24 Physical Exam Vital Signs and Narrative: Vital Signs: Last Vital Signs Temp 98.9 F 07/08/24 14:26 Pulse 72 07/08/24 14:26 Resp 16 07/08/24 14:26 BP 126/51 L 07/08/24 14:26 Pulse Ox 95 07/08/24 14:26 O2 Del Method Room Air 07/08/24 14:26 BMI result Body Mass Index 46.2 General: AOx3, no acute distress Resp: CTA bilaterally CVS: S1, S2, RRR Skin: Warm, dry Neuro: Cranial nerves II-XII grossly intact bilaterally. Motor grossly intact bilaterally Extremities: R 5th digit with erythema and fluctuance on the palmar aspect. pain with palpation. Psych: Appropriate affect Const: General: No confusion Orientation/consciousness: No confusion Neuro: General: No confusion Results Labs 07/08/24 13:39 07/08/24 13:39 Labs: Laboratory Results - last 24 hr 07/08/24 13:39 MCV 93.0 MCH 32.1 MCHC 34.6 RDW 13.1 Plt Count 163 MPV 10.4 Immature Gran % (Auto) 0.5 H Neut % (Auto) 49.0 Lymph % (Auto) 41.0 H [place] % (Auto) 8.0 Eos % (Auto) 1.0 Baso % (Auto) 0.5 Lymph # (Auto) 3.6 [place] # (Auto) 0.7 Eos # (Auto) 0.1 Baso # (Auto) 0.0 Abs Immat Gran (auto) 0.04 H Absolute Neuts (auto) 4.3 Absolute Nucleated RBC 0.000 Nucleated RBC % (auto) 0.0 Smear Tech's Comments VERIFIED ESR 16 H Anion Gap 14 Estim Creat Clear Calc 199.1 Estimated GFR > 60 Random Glucose 89 Calcium 10.0 Total Bilirubin 1.0 Direct Bilirubin 0.3 AST 39 H ALT 39 Alkaline Phosphatase 62 C-Reactive Protein 0.44 Total Protein 9.8 H Albumin 4.5 Imaging Radiologist's Impressions: Impressions Finger X-Ray 07/08/24 10:38 IMPRESSION: No displaced fracture of the fifth digit. Diffuse soft tissue swelling. This study was presented today July 08, 2024 for interpretation. Stat results provided at this time as requested by referring provider. Electronically signed by: Una Tovar MD 07/08/2024 11:24 AM [facility] Assessment and Plan (1) Paronychia of right little finger: Status: Acute (2) Cellulitis: Status: Acute Plan Patient is a 39-year-old male with no significant past medical history who presented to the ED today with right 5th digit pain swelling past few days. Seen by ortho surgery who suggested paronychia with cellulitis, not yet flexor tenosynovitis. They recommended admission with IV antibiotics and warm soaks with possible surgery tomorrow if no improvement overnight. Paronychia/cellulitis right 5th digit - xray with no displaced fracture of the 5th digit, diffuse soft tissue swelling - no leukocytosis or sepsis - started on clindamycin and vancomycin in ED per ortho recommendation, will continue - warm soaks with either salt water or strength peroxide to encourage softening of the skin and spontaneous drainage - continue Toradol as needed for pain - NPO after midnight pending surgical evaluation tomorrow Full code VTE prophy: pneumoboots pending possible surgery tomorrow Patient with paronychia complicated by cellulitis and with concern for progression to flexor tenosynovitis, requiring IV antibiotics and monitoring for at least 2 midnights stay. Quality Stroke Does the patient have a stroke diagnosis?: No VTE Prior VTE?: No VTE Risk Level:: Medical - moderate - high VTE Device Contraindication: Treatment Not Indicated VTE Drug Contraindication: N/A - Med Ordered
--- NOTE | 2024-07-08 16:21 | PHA.PROG ---
Admission Date/Time: July 08, 2024 15:53 Indication: skin and skin structure Weight in k.829 kg Adjusted body weight in Kg: [place] body weight in Kg: Obesity Dosing Indication % IBW: BMI 46.2 Serum Creatinine - Last 168 Hours 07/08/24 13:39 Creatinine 0.83 Estimated CrCl and GFR - Last 168 Hours 07/08/24 13:39 Estim Creat Clear Calc 199.1 Estimated GFR > 60 Vancomycin Loading Dose: 2000 mg x1 Current Vancomycin Dosing Regimen: 1250mg @8H Vancomycin Monitoring using AUC goal of 400 - 600 range with trough as surrogate marker: 495 Date and Time for next Vancomycin Level to be drawn: 07/09/24 @1400 Pharmacist Comments on Vancomycin Plan: Using obese model on insight Rx, predicted trough 15.6. Renal function is stable..to be adjusted and changed based on trough and renal function. Vancomycin dosing will take advantage of [employer] as a clinical decision support tool that uses Bayesian modeling to calculate individual patient's pharmacokinetic parameters and forecast the patient's drug concentration time course with the target goal AUC 24 range of 400 - 600 mg/L/hr.
[2024-07-08 16:37] VITALS: BP 162/76; PULSE 64; RESP 16; TEMP 36.9; O2SAT 96
[2024-07-08] MEDS: oxyCODONE HCl Immed Release 5 MG TABLET PO (18:40)
--- NOTE | 2024-07-08 18:46 | PC.NURSE ---
pt reporting increase in pain - prn oxycodone utilized. effectiveness pending. pt waiting for transportation to admission bed assignment at this time. plan of care ongoing.
[2024-07-08 20:31] VITALS: BP 145/61; PULSE 86; RESP 16; TEMP 36.3; O2SAT 96
[2024-07-08 20:58] VITALS: BMI 46.3
[2024-07-08] MEDS: Ketorolac Tromethamine 30 MG/ML VIAL 15 MG IVPUSH (21:04)
[2024-07-08 21:20] VITALS: BP 132/66; PULSE 76; RESP 18; TEMP 36.8; O2SAT 97
[2024-07-08] MEDS: vancomycin HCL 1,250 MG in 0.9 % Sodium Chloride 250 ML 166.67 MG IV (23:58)
[2024-07-09] MEDS: 0.9 % Sodium Chloride Flush 3 ML SYRINGE IVFLUSH ×2 (00:02→07:36)
[2024-07-09 03:33] VITALS: BP 137/73; PULSE 74; RESP 20; TEMP 36.7; O2SAT 95
[2024-07-09] MEDS: Clindamycin Phosphate/D5W 600 MG/50 ML PIGGYBACK 100 MG IV ×2 (06:15→13:58)
[2024-07-09] MEDS: Ketorolac Tromethamine 30 MG/ML VIAL 15 MG IVPUSH ×2 (06:17→11:29)
[2024-07-09 07:31] VITALS: BP 156/83; PULSE 70; RESP 20; TEMP 36.8; O2SAT 98
[2024-07-09] MEDS: vancomycin HCL 1,250 MG in 0.9 % Sodium Chloride 250 ML 166.67 MG IV (07:31)
[2024-07-09 07:32] LABS: MANUAL DIFF FLAG NO
[2024-07-09 07:37] LABS: Basophils Percent Auto 0.2 % (0-2); Eosinophils Absolute Auto 0.1 X10*3/uL (0.0-0.4); Eosinophils Percent Auto 1.5 % (0-4); Hematocrit 41.1 % (42.0-52.0); Hemoglobin 13.5 g/dl (14.0-18.0); Imm Gran Abs Auto 0.02 X10*3/uL (0.00-0.03); Imm Gran Pct Auto 0.2 % (0.0-0.4); Lymphocytes Absolute Auto 3.3 X10*3/uL (1.2-4.9); Lymphocytes Percent Auto 38.4 % (20-40); Mean Corpuscular HGB Conc 32.8 g/dl (31.0-36.0); Mean Corpuscular Hemoglobin 31.3 pg (27.0-33.0); Mean Corpuscular Volume 95.4 fL (80.0-98.0); Mean Platelet Volume 9.2 fL (9.4-12.4); Monocytes Absolute Auto 0.9 X10*3/uL (0.1-1.2); Neutrophils Absolute Auto 4.2 x10*3/uL (2.0-8.3); Neutrophils Percent Auto 49.7 % (45-73); Platelet Count 251 X10*3/uL (160-400); Red Blood Count 4.31 X10*6/uL (4.60-5.80); Red Cell Distribution Width 13.1 % (11.0-16.0); White Blood Count 8.5 X10*3/uL (4.8-10.8)
[2024-07-09 07:53] LABS: Anion Gap 14 (12-20); Blood Urea Nitrogen 14 mg/dL (9-16); Calcium 9.5 mg/dL (8.4-10.2); Carbon Dioxide 21 mmol/L (22-29); Chloride 108 mmol/L (96-108); Creatinine Clr Calc Pharmacy 187.9; Estimated Glomerular Filt Rate > 60; Glucose Random 116 mg/dL (60-115); Potassium 4.1 mmol/L (3.3-5.1); Sodium 139 mmol/L (135-145)
--- NOTE | 2024-07-09 08:11 | PM.PNORT ---
Subjective Subjective Date of Service: 07/09/24 Interval history: 39-year-old male admitted to the hospital for evaluation of paronychia and cellulitis of right small finger Patient reports that the very small area of purulence noted on the radial aspect has grown larger Patient reports that swelling and erythema have both improved Patient reports improved range of motion No other acute complaints or concerns at this time No acute events overnight Pain better managed Physical Exam Vital Signs: Vital Signs: Last Vital Signs Temp 98.3 F 07/09/24 07:31 Pulse 70 07/09/24 07:31 Resp 20 07/09/24 07:31 BP 156/83 H 07/09/24 07:31 Pulse Ox 98 07/09/24 07:31 O2 Del Method Room Air 07/09/24 07:31 BMI result Body Mass Index 46.3 Extrem: Other: Patient is alert, oriented, and in no acute distress. Neuro: Normal sensation of the tips of all digits of the right hand at this time Vascular: Cap refill brisk Pain: Severe pain and tenderness to palpation of the distal and radial aspect of the right small finger, moving into the radial aspect of the middle phalanx No tenderness to palpation of the proximal or middle flexor tendon of the right small finger Patient is able to almost fully actively extend the right small finger, is able to get approximately 80% of the way to a closed fist while flexing the right small finger, restricted due to pain Skin: There is a focal area of edema and erythema with a small area of purulence noted on the radial aspect of the distal phalanx of the right small finger Area of purulence appears to have expanded since evaluation yesterday Of note, there is some erythema streaking down the radial aspect of the right small finger down to the base and into the distal hand, improved since previous evaluation yesterday Psych: Appears grossly normal Affect normal Attitude cooperative Procedures Date of Service Date of Service: 07/09/24 Progress Note: A&P Assessment and plan (1) Paronychia of right little finger: Status: Acute (2) Cellulitis: Status: Acute Plan 1. Paronychia and cellulitis of right small finger Ongoing for 9 days Patient is a discussed with Dr. Eaton, and a collaborative treatment plan was formed: Area of purulence appears to have been brought close to the surface even without any warm water soaks overnight Patient is told that he is currently NPO for potential surgical intervention this afternoon I educated the patient about the condition. I discussed both operative and nonoperative treatment options. The patient would like to proceed with surgery. The risks and benefits of operative treatment were discussed with the patient and the patient wishes to proceed with surgery. These risks include, but are not limited to, risk of damage to blood vessels, nerves, tendons, infection, recurrence, incomplete relief of preoperative symptoms, persistent pain, possible need for further surgery, and the risks associated with regional blocks and/or anesthesia. Plan is to take the patient to the operating room at some point today for the following procedures: 1. Drainage of paronychia of right small finger under local anesthesia Continue with IV antibiotics per Medicine Continue with all other recommendations per Medicine Time Spent With Patient Time: Total time managing care of this patient today ____ minutes. Quality Stroke Does the patient have a stroke diagnosis?: No VTE Prior VTE?: No VTE Risk Level:: Medical - moderate - high VTE Device Contraindication: N/A - Device Ordered VTE Drug Contraindication: Treatment Not Indicated
--- NOTE | 2024-07-09 08:27 | P.PNIM_ITS ---
Subjective Subjective Date of Service: 07/09/24 Interval History: Pain, erythema and swelling have improved. able to bend finger more. no drainage, has not been soaking. no pain or erythema down the forearm. no fever, chills, nausea. vomiting, chest pain or SOB. would like to go home. Constitutional Constitutional: Denies chills and Denies fever(s) Cardiovascular Cardiovascular: Denies chest pain, Denies rapid heart rate and Denies dyspnea Respiratory Respiratory: Denies dyspnea Gastrointestinal Gastrointestinal: Denies diarrhea, Denies nausea and Denies vomiting Musculoskeletal Musculoskeletal: Reports as per HPI Integumentary/Breasts Skin/Breast: Reports as per HPI Physical Exam 2 Vital Signs: Vital Signs: Last Vital Signs Temp 98.3 F 07/09/24 07:31 Pulse 70 07/09/24 07:31 Resp 20 07/09/24 07:31 BP 156/83 H 07/09/24 07:31 Pulse Ox 98 07/09/24 07:31 O2 Del Method Room Air 07/09/24 07:31 BMI result Body Mass Index 46.3 General: AOx3, no acute distress Skin: Warm, dry. erythema still present right 5th digit but improved since yesterday, pain with palpation, no active drainage. Extremities: No edema Psych: Appropriate affect Objective Data Active Medications Acetaminophen (Acetaminophen 325 Mg Tablet) 650 mg PO Q6H PRN PRN Reason: Pain, Mild (Pain Scale 1-3), fever or headache Calcium Carbonate (Calcium Carbonate 750 Mg Tab.Chew) 750 mg PO Q4H PRN PRN Reason: Heartburn Clindamycin Phosphate (Cleocin) 600 mg in 50 mls @ 100 mls/hr IV Q8H [facility] Last Infusion: 07/09/24 07:21 Dose: Infused Documented By: SHANNON Vancomycin HCl 1,250 mg/ (Sodium Chloride) 250 mls @ 166.667 mls/hr IV Q8H [facility] Last Admin: 07/09/24 07:31 Dose: 166.67 mls/hr Documented By: SHANNON Ketorolac Tromethamine (Ketorolac Tromethamine 30 Mg/Ml Vial) 15 mg IVPUSH Q6H PRN PRN Reason: Pain, Moderate(Pain Scale 4-6) Stop: 07/13/24 15:52 Last Admin: 07/09/24 06:17 Dose: 15 mg Documented By: ALINE Magnesium Hydroxide (Milk Of Magnesia 30 Ml Oral.Susp) 30 ml PO DAILY PRN PRN Reason: Constipation Melatonin (Melatonin 3 Mg Tablet) 6 mg PO BEDTIME PRN PRN Reason: Insomnia Ondansetron HCl (Ondansetron Hcl 4 Mg/2 Ml Vial) 4 mg IVPUSH Q8H PRN PRN Reason: Nausea and Vomiting Oxycodone HCl (Oxycodone Hcl Immed Release 5 Mg Tablet) 5 mg PO Q6H PRN PRN Reason: Pain, Severe (Pain Scale 7-10) Last Admin: 07/08/24 18:40 Dose: 5 mg Documented By: MIS Pharmacy Consult (Consult Rx Vancomycin Dosing) 1 each MISCELLANE DAILY PRN PRN Reason: Consult order Sodium Chloride (0.9 % Sodium Chloride Flush 3 Ml Syringe) 3 [facility] Last Admin: 07/09/24 07:36 Dose: 3 ml Documented By: SHANNON Labs 07/09/24 07:25 07/09/24 07:25 Labs: Laboratory Results - last 24 hr 07/08/24 07/09/24 13:39 07:25 MCV 93.0 95.4 MCH 32.1 31.3 MCHC 34.6 32.8 RDW 13.1 13.1 Plt Count 163 251 D MPV 10.4 9.2 L Immature Gran % (Auto) 0.5 H 0.2 Neut % (Auto) 49.0 49.7 Lymph % (Auto) 41.0 H 38.4 [place] % (Auto) 8.0 10.0 Eos % (Auto) 1.0 1.5 Baso % (Auto) 0.5 0.2 Lymph # (Auto) 3.6 3.3 [place] # (Auto) 0.7 0.9 Eos # (Auto) 0.1 0.1 Baso # (Auto) 0.0 0.0 Abs Immat Gran (auto) 0.04 H 0.02 Absolute Neuts (auto) 4.3 4.2 Absolute Nucleated RBC 0.000 0.000 Nucleated RBC % (auto) 0.0 0.0 Smear Tech's Comments VERIFIED ESR 16 H Anion Gap 14 14 Estim Creat Clear Calc 199.1 187.9 Estimated GFR > 60 > 60 Random Glucose 89 116 H Calcium 10.0 9.5 Total Bilirubin 1.0 Direct Bilirubin 0.3 AST 39 H ALT 39 Alkaline Phosphatase 62 C-Reactive Protein 0.44 Total Protein 9.8 H Albumin 4.5 Assessment and Plan (1) Paronychia of right little finger: Status: Acute (2) Cellulitis: Status: Acute Plan paronychia/cellulitis - improving, pain, erythema and swelling better - CBC improving - plan per ortho I&D today with local anesthesia - continue IV clindamycin and vancomycin - continue torodol PRN for pain Pt with paronychia/cellulitis followed due to concern for progression to flexor tenosynovitis, improving with IV abx, I&D today with possible discharge later with PO abx. Total time managing care of this patient today: 15 minutes. Quality Stroke Does the patient have a stroke diagnosis?: No VTE Prior VTE?: No VTE Risk Level:: Medical - moderate - high VTE Device Contraindication: N/A - Device Ordered VTE Drug Contraindication: Treatment Not Indicated
--- NOTE | 2024-07-09 09:15 | MHC.CM.PN ---
Pt self-care, lives at home alone. Pts sister will transport him home at discharge. New HCP completed with pt, now on file. Pt does not have a PCP, a local list of PCP's was given to the pt.
--- NOTE | 2024-07-09 10:25 | PM.DS ---
DS: Providers Provider Date of Service: 07/09/24 Date of admission: 07/08/24 15:53 Date of discharge: 07/09/24 Primary care physician: None Physician Consults: 07/09/24 07:42 Consult to Orthopedics Routine Consulting Provider: [facility] Reason for consultation: infected finger DS: Diagnosis Discharge Diagnosis (1) Paronychia of right little finger: Status: Acute (2) Cellulitis: Status: Acute DS: Summary Hospital Course Hospital Course: Admission H&P: Patient is a 39-year-old male with no significant past medical history who presented to the ED today with right 5th digit pain swelling past few days. He reports about 8 days ago he had itching on the finger, lateral aspect for about 3 days followed by pain and swelling. He rated the pain a 10/10 when touched, constant 7/10 pain however since arriving here and receiving antibiotics and ketorolac the pain has decreased to a 5/10. He denies any trauma to the area. No previous history of similar. He has not seen any providers for this prior to reporting to the ED. Hospital course: Pt presented to the ED with paronychia and cellulitis for 3 days, starting as pruritis for 5 days prior. Concern for progression to flexor tenosynovitis and admitted for IV clindamycin and vancomycin with monitoring followed by ortho. He has had good improvement with IV clindamycin and vancomycin, taking torodol PRN for pain. Successful I&D with local anesthesia today. Discharge home with PO abx: doxycycline 100mg BID x6 days to complete a 7 day course. Oxycodone 5mg PO Q6H PRN for pain #8. Pt denies any hx of substance use and understands the importance of proper use. Status at Discharge Functional status at discharge: independent ambulation Overall status at discharge: patient is progressing back to baseline Time Attestation Discharge Coordination Time (in mins): 40 mins Quality: Safe Use of Opioids Does Pt have an Active Cancer Diagnosis on the Problem List?: No Quality: Stroke Does the patient have a stroke diagnosis?: No Physical Exam Vital Signs: Vital Signs: Last Vital Signs Temp 98.3 F 07/09/24 07:31 Pulse 70 07/09/24 07:31 Resp 20 07/09/24 07:31 BP 156/83 H 07/09/24 07:31 Pulse Ox 98 07/09/24 07:31 O2 Del Method Room Air 07/09/24 07:31 BMI result Body Mass Index 46.3 General: AOx3, no acute distress Resp: CTA bilaterally CVS: S1, S2, RRR GI: +BS, NT, no distention Skin: Warm, dry Extremities: No edema, R 5th digit with large bandage Psych: Appropriate affect DS: Data Data Completed and Pending Labs on day of discharge: Laboratory Results - last 24 hr 07/08/24 07/09/24 13:39 07:25 WBC 8.9 8.5 RBC 4.70 4.31 L Hgb 15.1 13.5 L Hct 43.7 41.1 L MCV 93.0 95.4 MCH 32.1 31.3 MCHC 34.6 32.8 RDW 13.1 13.1 Plt Count 163 251 D MPV 10.4 9.2 L Immature Gran % (Auto) 0.5 H 0.2 Neut % (Auto) 49.0 49.7 Lymph % (Auto) 41.0 H 38.4 [place] % (Auto) 8.0 10.0 Eos % (Auto) 1.0 1.5 Baso % (Auto) 0.5 0.2 Lymph # (Auto) 3.6 3.3 [place] # (Auto) 0.7 0.9 Eos # (Auto) 0.1 0.1 Baso # (Auto) 0.0 0.0 Abs Immat Gran (auto) 0.04 H 0.02 Absolute Neuts (auto) 4.3 4.2 Absolute Nucleated RBC 0.000 0.000 Nucleated RBC % (auto) 0.0 0.0 Smear Tech's Comments VERIFIED ESR 16 H Sodium 139 139 Potassium 3.8 4.1 Chloride 107 108 Carbon Dioxide 22 21 L Anion Gap 14 14 BUN 10 14 Creatinine 0.83 0.88 Estim Creat Clear Calc 199.1 187.9 Estimated GFR > 60 > 60 Random Glucose 89 116 H Calcium 10.0 9.5 Total Bilirubin 1.0 Direct Bilirubin 0.3 AST 39 H ALT 39 Alkaline Phosphatase 62 C-Reactive Protein 0.44 Total Protein 9.8 H Albumin 4.5 Discharge Plan Discharge Anticipated Discharge Date/Time: 07/09/24 15:31 Patient Disposition: Home, Self-Care Discharge Diagnosis: R 5th digit paronychia and cellulitis Referrals: Physician,None [Primary Care Provider] - 1 Week Discharge Medications: New oxycodone 5 mg Tablet 5 mg PO Q6H PRN (Reason: Pain, Severe (Pain Scale 7-10)) Qty: 8 0RF Rx Instructions: Partial Fill upon patient request. doxycycline hyclate 100 mg capsule 100 mg PO BID Qty: 12 0RF Continued naproxen sodium [Aleve] 220 mg Tablet 220 - 440 mg PO DAILY PRN (Reason: Pain) Discharge Orders: Discharge Order (Routine); Ordered 07/09/24 Ordered By: Yesenia Lim Diet: Advance to usual diet Activity on Discharge: No Restrictions Stand Alone Forms: Patient Portal Discharge page, Work/School Release Print Language: Occitan Care Plan Goals: recovery from cellulitis and paronychia Health Concerns: cellulitis, paronychia Plan of Treatment: Take doxycycline 100 mg twice daily for 6 days Take oxycodone 5 mg every 6 hours as needed for severe pain Continue Aleve as needed for [id number] pain and inflammation Daily dressing changes and follow up with ortho as scheduled. Assessment: See above Patient Instructions: Cellulitis (GEN)
[2024-07-09 12:04] VITALS: BP 128/81; PULSE 82; RESP 16; TEMP 36.8; O2SAT 98
--- NOTE | 2024-07-09 12:57 | MHC.SHP ---
Pre-Procedural Eval Section A - 24 Hr Update-Section A only Date of Service: 07/09/24 The patient is an INPATIENT: Yes Changes since office visit: No Cold of Flu in the past 2 weeks, No New Medical Problems, No Changes in Medication and No Patient answered all questions The patient has been examined within 24 hours of the surgical procedure. The History & Physical has been completed within 30 days and I have reviewed it.: Yes Section B - Complete if H&P > 30 days Chief Complaint: paronychia and cellulitis Allergies: Allergies Allergy/AdvReac Type Severity Reaction Status Date / Time Penicillins [PCN] Allergy Severe ANAPHYLAXIS Verified 07/08/24 10:22 Sulfa (Sulfonamide Allergy Severe ANAPHYLAXIS Verified 07/08/24 10:22 Antibiotics) [SULFA (SULFONAMIDE ANTIBIOTICS)] Exam Exam Comment: Right small finger paronychia developing into a felon Erythema in area of paronychia. Small wound or blister over radial aspect of finger at distal phalanx level. No drainage at this time. Focal area of swelling beneath this consistent with small abscess or felon Swelling and tenderness extending focally over the radial aspect of the finger at the distal phalanx to the pad. Most tender over this area. No tenderness over flexor tendon sheath proximal to the D IP flexion crease. Patient able to flex and extend digit without difficulty. Plan Diagnosis/Plan: Unchanged I have reviewed the history and physical and performed a pertinent physical examination on my patient. No changes have occurred unless specified. Assessment and plan: 1. Right small finger felon I educated the patient about this condition and discussed operative and non operative treatment options. I am recommending surgery in the form of an I&D. The risks and benefits of operative treatment were discussed with the patient and the patient wishes to proceed with surgery. These risks include, but are not limited to risk of damage to blood vessels, nerves, tendons, infection, recurrence, incomplete relief of preoperative symptoms, persistent pain, possible need for further surgery and the risks associated with regional blocks and anesthesia. The plan is to take the patient to the operating room today for the following procedures: 1. Right small finger I and D 2. [ ] All of the preoperative paperwork including the consent was filled out today and signed. All the patient's questions were answered. Time Spent With Patient Time: Total time managing care of this patient today ____ minutes.
--- NOTE | 2024-07-09 13:00 | P.OP_ITS ---
Operative Note Operative Note Date of Service: 07/09/24 Narrative: Operative Note Preop diagnosis: 1. Right small finger felon Postop diagnosis: same Procedure: 1. Right small finger felon I and D Surgeon: Serenity Eaton MD [employer] Machine Operator: None Anesthesia: digital block using 1% lidocaine with epinephrine Findings: Creamy purulent drainage from volar radial aspect of right small finger EBL: Less than 5 mL Tourniquet time: None Specimens: Cultures of purulent material from right small finger Complications: None Disposition: Brought to recovery room in stable condition Plan: Admit back to floor for antibiotics. Anticipate discharge later today on oral antibiotics Follow-up for 5-7 days for wound check and suture removal and to check cultures Indications: The patient is 39 years old, with right small finger felon . The risks and benefits of operative treatment including but not limited to risk of damage to blood vessels, nerves, tendons, infection, persistent pain, persistent symptoms, recurrence or possible need for additional surgery were discussed with the patient and the patient wishes to proceed with surgery. Procedure: Once consent was obtained a digital block was performed in the preop area using a combination of 1% lidocaine with epinephrine. The patient was then brought back to the operating suite and placed on the operative table in supine position. A tourniquet was applied to the proximal aspect of the right upper extremity and the limb was prepped and draped in a standard surgical fashion. Once assured that we had a good block, I made a 1 cm longitudinal incision over the radial volar aspect of the patient's right small finger, directly over the apex of the abscess blister. The incision was made through the skin to the subcutaneous tissues using a 15. Blade. I then dissected into the pad of the small finger using tenotomy and iris scissors. We encountered creamy yellow purulence and cultures were taken. Tenotomy scissors were used to carefully open up the pad of the finger and allow for drainage of the purulent material. The wound was then copiously irrigated with normal saline. Once satisfied with our I&D the wound was copiously irrigated with normal saline and hemostasis was obtained with a brief period of local pressure. No sutures were placed, to allow for drainage. Sterile dressing was then applied. The patient appears to have tolerated the procedure well and with no complic ations. All digits were well vascularized at the conclusion of the case.
[2024-07-09 14:37] LABS: Vancomycin Random 10.5 mcg/mL (15-20)
--- NOTE | 2024-07-09 14:45 | HE.PHANOTE ---
re [facility] patients level came back at 10.4. scr slightly increase from 0.83 to 0.88. will increase dose to 1500 mg Q8h to get level up. will get level tomorrow 07/10 @1400 to ensure safety vs efficacy. predicted AUC 537
[2024-07-09 16:00] VITALS: BP 132/65; PULSE 87; RESP 20; TEMP 36.7; O2SAT 97
--- NOTE | 2024-07-09 16:03 | MHC.CM.PN ---
Pt is medically cleared for discharge home self-care.
== END 2024-07-09 16:30 | disposition home or self-care (01) | DRG 364 ==
LOC: HO.ED 14:19 → HO.EDOVER 16:05 → HO.IMC 17:26
PROVIDERS: Orthopaedic Surgery; Physician Assistant; Admitting Provider Physician Assistant; Emergency Provider Student in an Organized Health Care Education/Training Program; Visit Provider Internal Medicine
PROC: 0J9J0ZZ Drainage of Right Hand Subcutaneous Tissue and Fascia, Open Approach (ICD-10-PCS; principal; 2024-07-09 12:30)
DX: L03.011 Cellulitis of right finger (principal); Z87.891 Personal history of nicotine dependence; Z88.0 Allergy status to penicillin; Z88.2 Allergy status to sulfonamides
CPT/HCPCS: 36415; 73140; 80048; 80076; 80202; 85025; 85652; 86140; 87040; 87070; 87077; 87186; 87205; 99285; J0736; J1885; J2004; J3370; J3371

== ENCOUNTER → 2024-07-08 12:04 | Outpatient (BNV) | payer BC, SELFPAY | PROVIDERS: Emergency Provider Student in an Organized Health Care Education/Training Program | DX: L03.011 Cellulitis of right finger (principal) | CPT/HCPCS: 26011; 99222; 99232 ==

== ENCOUNTER → 2024-07-08 15:53 | Outpatient (BNV) | payer BC, SELFPAY | PROVIDERS: Admitting Provider Physician Assistant; Emergency Provider Student in an Organized Health Care Education/Training Program; Visit Provider Physician Assistant | DX: L03.011 Cellulitis of right finger (principal) | CPT/HCPCS: 99222 ==

== ENCOUNTER 2024-07-17 10:41 | Outpatient (REF) | payer BC, SELFPAY | END 2024-07-17 10:42 | disposition home or self-care (01) | LOC: HO.HOSX 10:41 | PROVIDERS: Visit Provider Orthopaedic Surgery | DX: M79.641 Pain in right hand (principal) | CPT/HCPCS: 73130 ==

== ENCOUNTER 2024-07-17 13:03 | Outpatient (AMB) | payer BC, SELFPAY ==
[2024-07-17 13:27] VITALS: BMI 46.3
--- NOTE | 2024-07-17 13:27 | MHC.OFFVIS ---
Vital Signs 07/17/24 13:27 Height 6 ft 3 in Weight 370 lb 6 oz BMI 46.3 Intake Visit Reasons: PO-s/p I&D of R SF paronychia Intake Note: Vandana is a 39 yo right hand dominant male who presents today as a new patient s/p I&D of the right small finger paronychia, DOS: 07/09/[address] Eaton. Patient reports tightness at the DIP joint of the right small finger. Patient denies numbness, tingling, or finger locking. Patient has completed his Doxycycline today. He is taking Naproxen when needed. Patient states she has been applying triple antibiotic. Allergies Penicillins [PCN] Allergy (Severe, Verified 07/17/24 13:28) ANAPHYLAXIS Sulfa (Sulfonamide Antibiotics) [SULFA (SULFONAMIDE ANTIBIOTICS)] Allergy (Severe, Verified 07/17/24 13:28) ANAPHYLAXIS HPI HPI PO-s/p I&D of R SF paronychia: Details: Patient is a 39-year-old man status post I and D of a right small finger felon and paronychial infection. The patient reports that he is doing much better and has just recently finished all of his antibiotics. He does note that he gets a blister full of water around the wound whenever he takes a shower. 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 He has had nice resolution of the swelling involving the right small finger. The wound looks like it is healing nicely with just a very small area, perhaps 2-3 mm in length, where he still has some granulation tissue. He does have a blister-like layer of tissue surrounding the wound on the ulnar-sided of the distal phalanx. No erythema or drainage today. The pad of the finger is no longer tender He can make a fist and extend all of his digits. Culture results from 07/09/2024 I&D Routine Culture Final 07/11/24-1335 Organism 1 Staphylococcus aureus Quantity 3+ S aureus M.I.C. RX --------- --- Clindamycin <=0.25 S Erythromycin <=0.25 S Levofloxacin <=0.12 S Oxacillin 0.5 S Penicillin-G 0.06 S Tetracycline <=1 S Trimethoprim/Sulfamethoxazole <=10 S . Assessment & Plan Assessment & Plan (1) Felon of finger of right hand: Code(s): L03.011 - Cellulitis of right finger Category: Medical Plan Assessment and plan: 1. Right small finger felon and paronychial infection, status post I and D Date of surgery 07/09/2024 The patient appears to be doing well postoperatively. He has finished his oral antibiotics for his MSSA infection He already has excellent return of range of motion and hand function. I used the suture removal scissors to remove the blister-like layer of tissue over the ulnar and dorsal aspect of the distal phalanx. He tolerated this well, and is grateful. He will continue to refrain from dirty activities until the wound is completely sealed over. Daily wound care. This point I think he can follow up p.r.n. He is happy with the current plan Orders: Orders XR hand RT min 3V Today M79.641 - Pain in right hand Coding Level of Care Code Global (81623) Diagnoses Felon of finger of right hand L03.011
== END 2024-07-17 14:19 | disposition home or self-care (01) ==
PROVIDERS: Visit Provider Orthopaedic Surgery
DX: L03.011 Cellulitis of right finger (principal)
CPT/HCPCS: 99024

== ENCOUNTER 2025-07-14 18:15 | Emergency (ER) | payer BC, SELFPAY ==
--- NOTE | ~2025-07-14 | CT_ITS ---
CLINICAL HISTORY: left sided facial palsy droop CT head without contrast Comparison: None Findings: No intracranial mass, midline shift, hydrocephalus, or acute hemorrhage. No CT evidence of acute ischemia. Visualized paranasal sinuses and mastoid air cells normal. Orbits unremarkable. No skull fracture Impression: 1. No acute intracranial abnormalities. This document has been electronically signed by: Yosef Camilo MD on 07/14/2025 20:21:29
[2025-07-14 18:18] VITALS: BP 123/74; PULSE 92; RESP 18; TEMP 36.6; O2SAT 98; BMI 47.9
--- NOTE | 2025-07-14 18:24 | ED.GENADULT ---
HPI - General Adult General Chief complaint: Neuro Symptoms/Deficit Stated complaint: ? possible stroke Time Seen by Provider: 07/14/25 19:50 History of Present Illness ED Provider: Dr. Jaime HPI narrative: 40 y/o M patient without significant PMH presents from home reporting right sided facial numbness/tingling with difficulty closing right eye, closing right-sided mouth, and raising right eyebrow. Denies having had these symptoms before. Really noticed them tonight when trying to eat dinner. Denies: numbness/weakness/tingling in arms or legs, falls/head injury. No known recent tick exposures. Related Data Home Medications ?Medication ?Instructions ?Recorded ?Confirmed naproxen sodium 220 mg tablet 220 - 440 mg PO DAILY PRN Pain 07/08/24 07/08/24 (Aleve) Previous Rx's ?Medication ?Instructions ?Recorded carboxymethylcellulose sodium 1 % 1 drp ophthalmic (eye) QID 14 days 07/14/25 eye drops (Artificial Tears #15 mL (carboxymethylcellulose)) prednisone 20 mg tablet 60 mg (3 x 20 mg) PO DAILY 7 days 07/14/25 #21 tabs valacyclovir 1 gram tablet 1,000 mg PO Q8H 1 week #21 tabs 07/14/25 white petrolatum-mineral oil 83 1 appl ophthalmic (eye) BEDTIME 07/14/25 %-15 % eye ointment (Artificial #3.5 grams Eye Lubricant) Allergies Allergy/AdvReac Type Severity Reaction Status Date / Time Penicillins (PCN) Allergy Severe ANAPHYLAXIS Verified 07/14/25 18:20 Sulfa (Sulfonamide Allergy Severe ANAPHYLAXIS Verified 07/14/25 18:20 Antibiotics) (SULFA (SULFONAMIDE ANTIBIOTICS)) Review of Systems Review of Systems: Yes all other systems are reviewed and are negative PMFSH Past Medical History Attestation statement: The following information was validated with the patient. 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 Const General: cooperative and no acute distress Orientation/consciousness: patient oriented x3 HENMT Head: Yes normal to inspection and Yes atraumatic Eyes General: appearance normal, both eyes and all related structures Conjunctivae: conjunctivae normal Pupils: Equal, round and reactive pupils present EOM: EOMs intact bilaterally Neck Neck: Yes normal visual inspection, Yes full ROM, Yes supple and No tender Chest Chest palpation & inspection: normal inspection of the chest and normal palpation of entire chest wall Resp Effort & Inspection: normal respiratory effort, able to speak in complete sentences and no cough Auscultation: clear to auscultation bilaterally Cardio Rate: regular rate Rhythm: regular rhythm Peripheral pulses: Peripheral pulses 2+ throughout GI Inspection: Yes normal to inspection, No Abdominal wall edema and No distended Palpation (GI): Soft to palpation, not firm, nontender, no guarding and not rigid Auscultation: normal bowel sounds Back/Spine/Pelvis Back: No back tenderness Neuro Other: Minimal movement of right eyebrow, right eyelid incomplete closure Right sided facial droop Normal finger to nose. No nystagmus. No dysdiadokinesis. Normal gait. General: patient oriented x3 Cranial nerves: Yes Equal, round and reactive pupils present Course Course Course Narrative: Rapid medical examination performed in triage by Britni Blanton PA-C: Patient is a 40 year old assigned male at presenting to the emergency department with left sided facial issues. Patient states that he was eating approximately 30 minutes ago and the left side of his face stopped working. Patient states that he cannot blink his left eye. Physical exam showed left sided facial nerve palsy but otherwise no focal deficits. Detailed physical exam and review of systems are deferred to the edi developer. EKG, labs, imaging ordered. Patient placed back in the waiting room pending room availability and results. Reevaluation(s) Reevaluation #1: Patient is afebrile and hemodynamically stable. Reviewed triage work up of EKG, CT Head, and labs. These were ordered before I evaluated the patient by triaging PA. No significant leukocytosis. No significant anemia. ESR and CRP are not significantly elevated. Tick borne panel is pending. CT is unremarkable. 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 Will start on steroid and antiviral, providing first dose in the emergency department. Plan: Discharge to home with PCP follow up Return precautions given Rx prednisone, valacyclovir, artifical tears & ointment sent to pharmacy Medications Administered Discontinued Medications Generic Name Dose Route Start Last Admin Trade Name Ranjith PRN Reason Stop Dose Admin Prednisone 60 mg 07/14/25 20:10 07/14/25 20:16 Prednisone 20 Mg Tablet PO 07/14/25 20:11 60 mg ONCE ONE Administration Valacyclovir HCl 1,000 mg 07/14/25 20:10 07/14/25 20:16 Valacyclovir Hcl 1,000 Mg Tablet PO 07/14/25 20:11 1,000 mg ONCE ONE Administration Medical Decision Making Lab Data 07/14/25 18:36 07/14/25 18:36 Labs: Lab Results 07/14/25 Range/Units 18:36 WBC 9.7 (4.8-10.8) X10*3/uL RBC 4.41 L (4.60-5.80) X10*6/uL Hgb 14.2 (14.0-18.0) g/dl Hct 43.3 (42.0-52.0) % MCV 98.2 H (80.0-98.0) fL MCH 32.2 (27.0-33.0) pg MCHC 32.8 (31.0-36.0) g/dl RDW 13.1 (11.0-16.0) % Plt Count 250 (160-400) X10*3/uL MPV 9.4 (9.4-12.4) fL Immature Gran % (Auto) 0.3 (0.0-0.4) % Neut % (Auto) 40.8 L (45-73) % Lymph % (Auto) 45.1 H (20-40) % [place] % (Auto) 11.2 H (2-11) % Eos % (Auto) 2.3 (0-4) % Baso % (Auto) 0.3 (0-2) % Lymph # (Auto) 4.4 (1.2-4.9) X10*3/uL [place] # (Auto) 1.1 (0.1-1.2) X10*3/uL Eos # (Auto) 0.2 (0.0-0.4) X10*3/uL Baso # (Auto) 0.0 (0.0-0.2) X10*3/uL Abs Immat Gran (auto) 0.03 (0.00-0.03) X10*3/uL Absolute Neuts (auto) 4.0 (2.0-8.3) x10*3/uL Absolute Nucleated RBC 0.000 (0.0-0.012) X10*3/uL Nucleated RBC % (auto) 0.0 (0.0-0.2) /100WBC ESR 22 H (0-15) MM/HR Sodium 139 (135-145) mmol/L Potassium 4.0 (3.3-5.1) mmol/L Chloride 110 H (96-108) mmol/L Carbon Dioxide 22 (22-29) mmol/L Anion Gap 11 L (12-20) BUN 15 (9-16) mg/dL Creatinine 0.86 (0.5-1.4) mg/dL Estim Creat Clear Calc 194.2 Estimated GFR > 60 Random Glucose 122 H (60-115) mg/dL Calcium 9.1 (8.4-10.2) mg/dL Total Bilirubin 0.4 (0.0-1.0) mg/dL AST 42 H (5-37) U/L ALT 34 (0-40) U/L Alkaline Phosphatase 54 (39-117) U/L C-Reactive Protein 0.18 (< or = 0.50) mg/dL Total Protein 8.7 H (6.5-8.0) g/dL Albumin 4.1 (3.5-5.0) g/dL Independent Interpretation I performed an independent interpretation of an: EKG Interpretation: EKG independently interpreted by myself as NSR 82BPM with + LAFB. Radiology Impression Discussion of test interpretation with radiology: I have reviewed the radiologist's reading. Radiologist Impression: CLINICAL HISTORY: left sided facial palsy droop CT head without contrast Comparison: None Findings: No intracranial mass, midline shift, hydrocephalus, or acute hemorrhage. No CT evidence of acute ischemia. Visualized paranasal sinuses and mastoid air cells normal. Orbits unremarkable. No skull fracture Impression: 1. No acute intracranial abnormalities. This document has been electronically signed by: Yosef Camilo MD on 07/14/2025 20:21:29 Discharge Plan Discharge Clinical Impression: Quiroz's palsy Patient Disposition: Home, Self-Care Instructions: Quiroz Palsy (ED) Additional Instructions: You were diagnosed with quiroz's palsy today. Take the steroid (prednisone) once a day for the next 7 days. Take the anti-viral (valacyclovir) three times a day for the next 7 days. Use the eye drop as needed for dry eye on the left. Use the eye ointment at night, then place the eye patch for protection at night. You will be called if your tick testing is positive. Prescriptions: New Artificial Eye Lubricant 83-15 % ointment 1 appl ophthalmic (eye) BEDTIME Qty: 3.5 0RF valacyclovir 1 gram tablet 1,000 mg PO Q8H 7 Days Qty: 21 0RF prednisone 20 mg tablet 60 mg PO DAILY 7 Days Qty: 21 0RF Artificial Tears (cmc) 1 % drops 1 drp ophthalmic (eye) QID 14 Days Qty: 15 0RF No Action naproxen sodium [Aleve] 220 mg Tablet 220 - 440 mg PO DAILY PRN (Reason: Pain) Print Language: Tongan
--- NOTE | 2025-07-14 18:26 | ECG_ITS ---
Test Reason : WEAKNESS Blood Pressure : */* mmHG Vent. Rate : 82 BPM Atrial Rate : 82 BPM P-R Int : 164 ms QRS Dur : 106 ms QT Int : 396 ms P-R-T Axes : 31 -68 79 degrees QTcB Int : 462 ms Normal sinus rhythm Possible Left atrial enlargement Left anterior fascicular block Minimal voltage criteria for LVH, may be normal variant ( Rutledge product ) Abnormal ECG No previous ECGs available Referred By: Britni Blanton Electronically Signed By: HAYDEN MCNEIL MD
[2025-07-14 18:40] LABS: MANUAL DIFF FLAG NO
[2025-07-14 18:43] LABS: Hematocrit 43.3 % (42.0-52.0); Hemoglobin 14.2 g/dl (14.0-18.0); Imm Gran Abs Auto 0.03 X10*3/uL (0.00-0.03); Imm Gran Pct Auto 0.3 % (0.0-0.4); Lymphocytes Absolute Auto 4.4 X10*3/uL (1.2-4.9); Mean Corpuscular HGB Conc 32.8 g/dl (31.0-36.0); Mean Corpuscular Hemoglobin 32.2 pg (27.0-33.0); Mean Corpuscular Volume 98.2 fL (80.0-98.0); NRBC Abs Auto 0.000 X10*3/uL (0.0-0.012); NRBC Pct Auto 0.0 /100WBC (0.0-0.2); Platelet Count 250 X10*3/uL (160-400); Red Blood Count 4.41 X10*6/uL (4.60-5.80); White Blood Count 9.7 X10*3/uL (4.8-10.8)
[2025-07-14 18:54] LABS: Alanine Aminotransferase 34 U/L (0-40); Albumin Level 4.1 g/dL (3.5-5.0); Alkaline Phosphatase 54 U/L (39-117); Anion Gap 11 (12-20); Aspartate Amino Transferase 42 U/L (5-37); Blood Urea Nitrogen 15 mg/dL (9-16); Calcium 9.1 mg/dL (8.4-10.2); Carbon Dioxide 22 mmol/L (22-29); Chloride 110 mmol/L (96-108); Creatinine Clr Calc Pharmacy 194.2; Estimated Glomerular Filt Rate > 60; Potassium 4.0 mmol/L (3.3-5.1); Sodium 139 mmol/L (135-145); Total Protein 8.7 g/dL (6.5-8.0)
[2025-07-14 19:23] LABS: Erythrocyte Sedimentation Rate 22 MM/HR (0-15)
[2025-07-14 20:26] VITALS: BP 113/68; PULSE 76; RESP 16; TEMP 36.8; O2SAT 96
[2025-07-14 20:42] VITALS: BP 113/68; PULSE 76; RESP 16; TEMP 36.8; O2SAT 96
[2025-07-15 09:23] LABS: Lyme Abs Screen <0.90 index
[2025-07-16 02:39] LABS: A. Phagocytphilium DNA,RT-PCR NOT DETECTED (NOT DETECTED); Babesia Microti DNA, RT-PCR NOT DETECTED (NOT DETECTED); Borrelia Miyamotoi,DNA RT-PCR NOT DETECTED (NOT DETECTED); E.Chaffeensis DNA RT-PCR NOT DETECTED (NOT DETECTED); Lyme(Borrelia ssp)DNA RT-PCR NOT DETECTED (NOT DETECTED)
== END 2025-07-14 20:43 | disposition home or self-care (01) ==
PROVIDERS: Physician Assistant Medical; Emergency Provider Emergency Medicine
DX: G51.0 Bell's palsy (principal); R20.2 Paresthesia of skin; F17.210 Nicotine dependence, cigarettes, uncomplicated; F12.90 Cannabis use, unspecified, uncomplicated
CPT/HCPCS: 36415; 70450; 80053; 85025; 85652; 86140; 86617; 86618; 87468; 87469; 87478; 87484; 87798; 93005; 99284

== ENCOUNTER → 2025-07-14 18:26 | Outpatient (BNV) | payer BC, SELFPAY | PROVIDERS: Emergency Provider Emergency Medicine; Visit Provider Radiology Diagnostic Radiology | DX: G51.0 Bell's palsy (principal) | CPT/HCPCS: 70450 ==

== ENCOUNTER → 2025-07-14 18:26 | Outpatient (BNV) | payer BC, SELFPAY | PROVIDERS: Emergency Provider Emergency Medicine; Visit Provider Internal Medicine Cardiovascular Disease | DX: I44.4 Left anterior fascicular block (principal) | CPT/HCPCS: 93010 ==